=== PATIENT | male | born 1945 | race Caucasian/White ===

== ENCOUNTER 2024-07-13 08:50 | Emergency (ER) | payer MEDICARE, OTHER, SELFPAY ==
[2024-07-13 09:01] VITALS: PULSE 65; RESP 16; TEMP 36.8; O2SAT 97; BMI 24.0
--- NOTE | 2024-07-13 09:09 | ED.MALEGU ---
HPI - Male Genitourinary General Chief complaint: Urogenital-Male Stated complaint: blood in urine Time Seen by Provider: 07/13/24 09:08 Source: patient, RN notes reviewed and old records reviewed Mode of arrival: Ambulatory Limitations: no limitations History of Present Illness HPI Narrative: 78-year-old male history of hypertension, dyslipidemia, and memory issues does not take any anticoagulants presents with complaint of hematuria. and patient noticed it yesterday report 3 episodes with bright red blood were able to see through the water, noted no clots in the 1 episode that she witnessed. No fevers, no chest pain or shortness of breath no lightheadedness or passing out, new abdominal back or flank pain. No testicular pain. No discharge. No difficulty with urination. No reports of dysuria urgency or frequency. Patient does not take any anticoagulants. Has not had similar symptoms in the past. Patient is supposed to be taking lisinopril and simvastatin but has not been taking it the past month. He does take ibuprofen occasionally but no other daily medications. No aspirin, Plavix or other anticoagulants. Has had prior knee surgery. No known drug allergies. Former smoker, 1 alcoholic drink daily, no recreational drugs. Patient lives in [place] he in his are visiting the area and return Wednesday to [place]. Review of Systems Review of Systems ROS Unobtainable: All systems reviewed & are unremarkable except as noted in HPI and below Patient History Social History Smoking Status: Former smoker Exam Narrative Exam Narrative: GENERAL: Alert and oriented, well-appearing elderly male in mild distress, patient answers majority of questions but does defer some history to his . HEENT: Head normocephalic, atraumatic, EOMI, pupils reactive, face symmetric, moist mucous membranes NECK: Supple, full range of motion CARDIOVASCULAR: Regular rate and rhythm without murmurs, rubs or gallops. RESPIRATORY: Breath sounds equal bilaterally, no wheezes rales or rhonchi. ABDOMEN: Soft, nontender. Normoactive bowel sounds all 4 quadrants. No guarding or rebound, rigidity, no mass : No CVA tenderness EXTREMITIES: Normal range of motion, no clubbing or edema. Neurovascularly intact NEUROLOGICAL: Cranial nerves II through XII grossly intact. Moving all extremities SKIN: Warm, dry, no petechiae, no rashes or lesions. Initial Vital Signs Initial Vital Signs: Vital Signs Temperature 98.2 F 07/13/24 09:01 Pulse Rate 65 07/13/24 09:01 Respiratory Rate 16 07/13/24 09:01 Pulse Oximetry 97 07/13/24 09:01 Oxygen Delivery Method Room Air 07/13/24 09:01 Course Orders Ordered: ED Orders 07/13/24 09:00 UA Complete [Urinalysis and Microscopic] Stat 07/13/24 09:40 BMP [Basic Metabolic Panel] Stat CBC Auto Diff [Complete Blood Count AUTO DIFF] Stat 07/13/24 10:44 Urine Culture Stat Vital Signs Vital signs: Vital Signs - 8 hr 07/13/24 09:01 07/13/24 09:10 07/13/24 09:30 Temperature 98.2 F Pulse Rate 65 67 63 Respiratory Rate 16 Blood Pressure 204/88 H Pulse Oximetry 97 97 97 Oxygen Delivery Method Room Air 07/13/24 09:31 07/13/24 09:31 Temperature Pulse Rate 61 Respiratory Rate Blood Pressure 186/103 H Pulse Oximetry 97 Oxygen Delivery Method MDM - Male Genitourinary Lab Data 07/13/24 09:40 07/13/24 09:40 Labs: Lab Results 07/13/24 07/13/24 Range/Units 09:00 09:40 WBC 5.5 (4.5-11.0) X10^3/uL RBC 5.36 (4.5-5.9) X10^6/uL Hgb 16.6 (13.5-17.5) g/dL Hct 47.9 (41-53) % MCV 89.5 (80-100) fL MCH 30.9 (26-34) PG MCHC 34.6 (30-36) % RDW 13.8 (11.6-14.8) % Plt Count 186 (150-400) X10^3/uL Neut % (Auto) 79.3 H (50-75) % Lymph % (Auto) 14.0 L (25-40) % [place] % (Auto) 5.2 (3-14) % Eos % (Auto) 0.5 L (2-4) % Baso % (Auto) 1.0 (0-2) % Neut # (Auto) 4400 (9817-9789) /uL Lymph # (Auto) 800 L (2848-9044) /uL [place] # (Auto) 300 (0-900) /uL Eos # (Auto) 0 (0-450) /uL Baso # (Auto) 100 (0-100) /uL Sodium 136 L (137-145) mmol/L Potassium 4.4 (3.4-5.1) mmol/L Chloride 104 (98-107) mmol/L Carbon Dioxide 28 (22-32) mmol/L BUN 17 (9-20) mg/dL Creatinine 0.84 (0.66-1.25) mg/dL Estimated GFR > 60 (>60) mL/min BUN/Creatinine Ratio 20.2 (6-22) Glucose 109 (80-110) mg/dL Calcium 9.1 (8.4-10.2) mg/dL Urine Color Yellow Urine Appearance Clear Urine pH 6.5 (4.5-8.0) Ur Specific [place] 1.020 (1.000-1.035) Urine Protein Trace H (Negative) Urine Glucose (UA) Negative (Negative) g/dL Urine Ketones Negative (NEGATIVE) Urine Occult Blood 3+ H (Negative) Urine Nitrate Negative (Negative) Urine Bilirubin Negative (NEGATIVE) Urine Urobilinogen 0.2 (0.2) E.U./dL Ur Leukocyte Esterase Negative (NEGATIVE) Urine RBC 30-100/hpf H (0-5/HPF) Urine WBC 1-5/hpf (0-5/HPF) Ur Squamous Epith Cells 1-5 /hpf (0-5/HPF) Urine Bacteria Occasional (0-1) (None) Urine Mucus 2+ H (Negative) Ur Culture Indicated? Cult not indicated Vol Urine Centrifuged 10ml (spun) MDM Narrative Medical decision making narrative: 78-year-old with complaint of painless hematuria x3 yesterday and today. Patient is hypertensive but has been off his blood pressure meds indicates that he is not been taking it secondary to his memory issues and it has been hard to get him to take his meds. Labs normal white count normal hemoglobin platelets are 186. Chemistry shows sodium 136 normal electrolytes renal function BUN otherwise. Urine urine shows trace protein 3+ blood no nitrates no leukocyte esterase 3200 RBCs, 1-5 white cells, 1-5 squamous, 1 bacteria 2+ mucus. Culture was sent. Discussed with patient painless hematuria no clear signs of infection but was sent for urine culture if positive we will call in antibiotic. Offered to start 1 but they are comfortable holding off as he has not had any other urinary symptoms. Did discuss that if his urine culture is negative he needs follow up with Urology for further workup. Patient has memory issues but his at bedside who expresses understanding. Answered all questions, discussed return precautions. Discharge Plan Departure Patient Disposition: Home Clinical Impression: Hematuria Instructions: DI for Hematuria Activity Restrictions/Additional Instructions: Your urine today showed blood, minimal signs of infection it was sent for urine culture this takes about 48-72 hours to result. If positive you will be contacted to start an antibiotic, if negative we will not call. You are welcome to call us at [phone] to confirm the results of your urine culture. Your hemoglobin and renal function were normal. A copy of your labs and urinalysis are included in your paperwork. Please follow up with your physician for recheck. If you are having persistent painless hematuria you will need to follow up to have imaging and cystoscopy with a urologist to evaluate for source of your bleeding. Please return or go to the closest ER for fevers new abdominal back or flank pain, any nausea or vomiting, difficulty or inability to urinate, lightheadedness or passing out, new inappropriate bruising or bleeding or other new or concerning changes Stand Alone Forms: Patient Portal/API
[2024-07-13 09:10] VITALS: BP 204/88; PULSE 67; O2SAT 97
[2024-07-13 09:30] VITALS: PULSE 63; O2SAT 97
[2024-07-13 09:31] VITALS: BP 186/103; PULSE 61; O2SAT 97
[2024-07-13 09:51] LABS: Add Manual Diff / Slide Review NO; Basophils Absolute Auto 100 /uL (0-100); Eosinophils Absolute Auto 0 /uL (0-450); Eosinophils Percent Auto 0.5 % (2-4); Hematocrit 47.9 % (41-53); Hemoglobin 16.6 g/dL (13.5-17.5); Lymphocytes Absolute Auto 800 /uL (1100-4500); Mean Corpuscular HGB Conc 34.6 % (30-36); Mean Corpuscular Hemoglobin 30.9 PG (26-34); Mean Corpuscular Volume 89.5 fL (80-100); Monocytes Absolute Auto 300 /uL (0-900); Monocytes Percent Auto 5.2 % (3-14); Neutrophils Absolute Auto 4400 /uL (1500-7000); Neutrophils Percent Auto 79.3 % (50-75); Platelet Count 186 X10^3/uL (150-400); Red Blood Cell Count 5.36 X10^6/uL (4.5-5.9); Red Cell Distribution Width 13.8 % (11.6-14.8); White Blood Cell Count 5.5 X10^3/uL (4.5-11.0)
[2024-07-13 10:00] VITALS: BP 207/93; PULSE 58; O2SAT 98
[2024-07-13 10:08] LABS: BUN Creatinine Ratio 20.2 (6-22); Blood Urea Nitrogen 17 mg/dL (9-20); Calcium 9.1 mg/dL (8.4-10.2); Carbon Dioxide 28 mmol/L (22-32); Chloride 104 mmol/L (98-107); Estimated Glomerular Filt Rate > 60 mL/min (>60); Glucose 109 mg/dL (80-110); HEMOLYSIS < 15 (0-50); Potassium 4.4 mmol/L (3.4-5.1); Sodium 136 mmol/L (137-145)
[2024-07-13 10:29] LABS: Appearance Urine UA CLEAR; Bilirubin Urine UA NEGATIVE (NEGATIVE); Color Urine UA YELLOW; Glucose Urine UA NEGATIVE (Negative); Ketones Urine UA NEGATIVE (NEGATIVE); Leukocyte Esterase Urine UA NEGATIVE (NEGATIVE); Nitrite Urine UA NEGATIVE (Negative); Occult Blood Urine UA 3+ (Negative); Protein Urine UA TRACE (Negative); Urobilinogen Urine UA 0.2 E.U./dL (0.2); pH Urine UA 6.5 (4.5-8.0)
[2024-07-13 10:37] LABS: Bacteria Urine Occasional (0-1); Culture Indicated Urine Cult Not Indicated; Mucus Urine 2+ (Negative); RBC Urine 30-100/HPF (0-5/HPF); Squamous Epithelial Cell Urine 1-5 /HPF (0-5/HPF); Urine Volume 10mL (spun); WBC Urine 1-5/HPF (0-5/HPF)
[2024-07-13 11:03] VITALS: BP 198/99
== END 2024-07-13 11:04 | disposition home or self-care (01) ==
PROVIDERS: Emergency Provider Emergency Medicine
DX: R31.9 Hematuria, unspecified (principal)
CPT/HCPCS: 36415; 51798; 80048; 81001; 85025; 87086; 99283